=== PATIENT | female | born 2000 | race Caucasian/White ===

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

== ENCOUNTER 2018-02-09 21:05 | Emergency (ER) | payer OTHER ==
[2018-02-09 21:25] VITALS: BP 146/90
--- NOTE | 2018-03-09 04:03 | ED ---
Lower Extremity - HPI Summary HPI Summary: Complains of bruising on bilateral legs. History of ITP. Sent to the ED for evaluation of same by welcome desk agent. Patient states this is not her usual presentation, has no concerns, just came because told to do so by welcome desk agent. States bruises on her bilateral legs are improving. Unknown if related to trauma. Denies any symptoms or pain, fever, cough, sore throat, CP, SOB, N/V/D , abdomen pain, change in urinary BM. - History of Current Complaint Chief Complaint: EDGeneral Stated Complaint: BRUISING/BLEEDING GUMS Time Seen by Provider: 02/09/18 21:51 Hx Obtained From: Patient Mechanism Of Injury: Unknown Severity Currently: None Pain Intensity: 0 - Allergies/Home Medications Allergies/Adverse Reactions: Allergies Allergy/AdvReac Type Severity Reaction Status Date / Time No Known Allergies Allergy Verified 02/09/18 21:25 PMH/Surg Hx/FS Hx/Imm Hx Infectious Disease History: No Infectious Disease History: Denies: Traveled Outside the [place] in Last 30 Days - Social History Alcohol Use: None Substance Use Type: Reports: None Smoking Status (MU): Never Smoked Tobacco Review of Systems Constitutional: Negative Eyes: Negative ENT: Negative Cardiovascular: Negative Respiratory: Negative Gastrointestinal: Negative Genitourinary: Negative Musculoskeletal: Negative Positive: Bruising Neurological: Negative Psychological: Normal All Other Systems Reviewed And Are Negative: Yes Physical Exam - Summary Physical Exam Summary: Small bruises to the front of bilateral legs. No evidence of abrasion or laceration. PMS intact. Triage Information Reviewed: Yes Vital Signs On Initial Exam: Initial Vitals Temp Pulse Resp BP Pulse Ox 98.4 F 92 16 146/90 100 02/09/18 21:22 02/09/18 21:22 02/09/18 21:22 02/09/18 21:22 02/09/18 21:22 Vital Signs Reviewed: Yes Appearance: Positive: Well-Appearing Skin: Positive: Warm Head/Face: Positive: Normal Head/Face Inspection Eyes: Positive: Normal Neck: Positive: Supple Respiratory/Lung Sounds: Positive: Clear to Auscultation Cardiovascular: Positive: Normal Abdomen Description: Positive: Nontender Musculoskeletal: Positive: Normal Neurological: Positive: Normal Psychiatric: Positive: Normal AVPU Assessment: Alert - [place] Coma Scale Best Eye Response: 4 - Spontaneous Best Motor Response: 6 - Obeys Commands Best Verbal Response: 5 - Oriented Coma Scale Total: 15 Diagnostics - Vital Signs Vital Signs Temp Pulse Resp BP Pulse Ox 02/09/18 21:22 98.4 F 92 16 146/90 100 - Laboratory Lab Statement: Any lab studies that have been ordered have been reviewed, and results considered in the medical decision making process. Lower Extremity Course/Dx - Course Course Of Treatment: Patient states she has no complaints. This is not her usual presentation of ITP. States she came only because her welcome desk agent told her to do so. Refused to have blood draw or labs done. Patient appears competent, and understands her condition, and states she will return for any concerning symptoms. Signed out AMA. Advised to follow-up with hematology - Diagnoses Provider Diagnoses: Bruising Discharge - Sign-Out/Discharge Documenting (check all that apply): Discharge/Admit/Transfer - Discharge Plan Condition: Stable Disposition: AGAINST MEDICAL ADVICE Referrals: Rosa Gould MD [Primary Care Provider] - Additional Instructions: Follow-up with hematology. Return to the ED for any new or worsening symptoms - Billing Disposition and Condition Condition: STABLE Disposition: AMA
== END 2018-02-09 22:16 | disposition left against medical advice (07) ==
LOC: ED 21:05
DX: K06.9 Disorder of gingiva and edentulous alveolar ridge, unspecified (principal)
CPT/HCPCS: 99282